=== PATIENT | female | born 1980 | race Caucasian/White ===

== ENCOUNTER 2017-12-15 11:24 | Day surgery (SDC) | payer BC ==
[2017-12-15] MEDS ORDERED: PROPOFOL 20 ML (12:25)
== END 2017-12-15 15:02 | disposition home or self-care (01) ==
LOC: GIL 11:24
DX: K29.50 Unspecified chronic gastritis without bleeding (principal); Z87.891 Personal history of nicotine dependence; E66.9 Obesity, unspecified; Z68.32 Body mass index [BMI] 32.0-32.9, adult
CPT/HCPCS: 43239; 84703; 88305; 88312